=== PATIENT | female | born 1955 | race Caucasian/White ===

== ENCOUNTER 2016-04-25 11:40 | Emergency (ER) | payer OTHER ==
[~2016-04-25] VITALS: Ht 162.6 cm; Wt 60.0 kg
[~2016-04-25 11:40] MED LIST: FIORTAB4 PO; PROM1SUP12 PR; Z.0.NO CURRENT MEDS
[2016-04-25 11:46] VITALS: BP 172/85; PULSE 74; RESP 22; TEMP 98; O2SAT 95
[2016-04-25 11:52] VITALS: BP 172/85; PULSE 74; RESP 22; O2SAT 95
[2016-04-25] MEDS ORDERED: BUTA1CAP PO (11:52)
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
[2016-04-25] MEDS ORDERED: IBUPROFEN 400 MG TAB PO ONE (12:00)
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
--- NOTE | 2016-04-25 12:42 | RADRPT ---
EXAM DATE/TIME: 04/25/2016 12:19 [facility] COMPARISON: No previous studies available for comparison. INDICATIONS : Left shoulder pain MEDICAL HISTORY : None. SURGICAL HISTORY : None. ENCOUNTER: Initial ACUITY: 1 day PAIN SCORE: 10/10 LOCATION: Left upper extremity FINDINGS: Two view examination of the left shoulder demonstrates no evidence of fracture or dislocation. The g lenohumeral and acromioclavicular joints are maintained. Bony mineralization is normal. CONCLUSION: Unremarkable study. Ambrosio Bruce MD on April 25, 2016 at 12:40 Board Certified Radiologist. This report was verified electronically.
[2016-04-25] MEDS ORDERED: IBUP400T20 PO (13:09)
[2016-04-25 13:21] VITALS: BP 152/82; PULSE 61; RESP 18; O2SAT 96
== END 2016-04-25 13:44 | disposition home or self-care (01) ==
LOC: NEPE 11:40
DX: M25.512 Pain in left shoulder (principal); R07.89 Other chest pain; V43.62XA Car passenger injured in collision with other type car in traffic accident, initial encounter; Y93.9 Activity, unspecified; Y92.9 Unspecified place or not applicable; Y99.9 Unspecified external cause status
CPT/HCPCS: 71020; 73030; 99284

== ENCOUNTER 2017-07-21 11:55 | Observation (INO) | payer BC ==
[~2017-07-21] VITALS: Ht 157.5 cm; Wt 62.0 kg
[~2017-07-21 11:55] MED LIST changes: +BUTA1CAP PO; -FIORTAB4 PO; +IBUP1TAB5 PO; -PROM1SUP12 PR; -Z.0.NO CURRENT MEDS
[2017-07-21 12:05] VITALS: BP 184/96; PULSE 73; RESP 20; TEMP 98.1; O2SAT 98
[2017-07-21 12:39] LABS: AUTOMATED NEUTROPHIL # 4.4 TH/MM3 (1.8-7.7); BASOPHIL # 0.1 TH/MM3 (0-0.2); BASOPHIL % 0.8 % (0.0-2.0); EOSINOPHIL # 0.1 TH/MM3 (0-0.4); EOSINOPHIL % 1.5 % (0.0-4.0); HEMATOCRIT 42.2 % (35.0-46.0); HEMOGLOBIN 14.2 GM/DL (11.6-15.3); LYMPH % 31.2 % (9.0-44.0); LYMPHOCYTE # 2.3 TH/MM3 (1.0-4.8); MEAN CELL VOLUME 85.6 FL (80.0-100.0); MEAN CORPUSCULAR HEMOGLOBIN 28.8 PG (27.0-34.0); MEAN CORPUSCULAR HGB CONC 33.7 % (32.0-36.0); MEAN PLATELET VOLUME 8.8 FL (7.0-11.0); MONO % 6.6 % (0.0-8.0); MONOCYTE # 0.5 TH/MM3 (0-0.9); NEUT % 59.9 % (16.0-70.0); PLATELET COUNT 306 TH/MM3 (150-450); RED BLOOD COUNT 4.93 MIL/MM3 (4.00-5.30); RED CELL DISTRIBUTION WIDTH 12.7 % (11.6-17.2); WHITE BLOOD COUNT 7.4 TH/MM3 (4.0-11.0)
[2017-07-21 13:02] LABS: BLOOD UREA NITROGEN 13 MG/DL (7-18); CREATININE 0.87 MG/DL (0.50-1.00); GLOMERULAR FILTRATION RATE 66 ML/MIN (>89)
[2017-07-21 13:03] LABS: CALCIUM 8.8 MG/DL (8.5-10.1); GLUCOSE,RANDOM 88 MG/DL (74-106); SODIUM (NA) 142 MEQ/L (136-145)
[2017-07-21 13:04] LABS: BICARBONATE 31.8 MEQ/L (21.0-32.0); CHLORIDE 106 MEQ/L (98-107); TROPONIN I LESS THAN 0.02 NG/ML (0.02-0.05)
--- NOTE | 2017-07-21 13:14 | RADRPT ---
EXAM DATE/TIME: 07/21/2017 12:26 [facility] COMPARISON: CHEST PA & LAT, April 25, 2016, 12:17. INDICATIONS : Midsternal chest pains. MEDICAL HISTORY : None. SURGICAL HISTORY : None. ENCOUNTER: Initial ACUITY: 2 days PAIN SCORE: 8/10 LOCATION: Left chest FINDINGS: PA and lateral views of the chest demonstrate the lungs to be symmetrically aerated without evidence of mass, infiltrate or effusion. The cardiomediastinal contours are unremarkable. Osseous structure s are intact. CONCLUSION: 1. No acute cardiopulmonary disease. Agustín Carvajal MD on July 21, 2017 at 13:11 Board Certified Radiologist. This report was verified electronically.
[2017-07-21 13:48] VITALS: BP 173/88; PULSE 65; RESP 15; TEMP 98; O2SAT 98
[2017-07-21] MEDS ORDERED: TEMAZEPAM 15 MG CAP PO PRN (14:00)
[2017-07-21] MEDS ORDERED: ONDANSETRON HCL 4 MG/2 ML VIAL IV PUSH PRN (14:00)
[2017-07-21] MEDS ORDERED: MORPHINE SULFATE 4 MG/ML INJ IV PUSH PRN (14:00)
[2017-07-21] MEDS ORDERED: NITROGLYCERIN 0.4 MG SL 25 TABS/BTL SL PRN (14:00)
[2017-07-21] MEDS ORDERED: ALPRAZolam 0.25 MG TAB PO PRN (14:00)
[2017-07-21] MEDS ORDERED: SODIUM CHLORIDE 0.9% FLUSH 10 ML FLUSH IV FLUSH PRN (14:00)
--- NOTE | 2017-07-21 14:07 | PD ---
HPI Chief Complaint: Chest Pain Time Seen by Provider: 13:57 Travel History International Travel<30 days: No Contact w/Intl Traveler<30days: No Traveled to known affect area: No History of Present Illness HPI 61-year-old female arrives with a complaint of chest pain. 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 Pain has persisted. It was much worse this morning and she saw her primary doctor, Dr. Kenney, who performed an EKG and advised her to come to the ER for evaluation. She reports chest pain is gone in the ER after she received nitro sublingual, and I am injection and aspirin Dr. Kenney's office. There is no exertional chest pain or shortness of breath. She has no cough or fever to report. She denies diabetes hypertension hyperlipidemia. There is no family history coronary artery disease. She does not smoke or drink. PFSH Past Medical History Medical History: Denies Significant Hx Cardiovascular Problems: Yes Diminished Hearing: No Headaches: Yes Tetanus Vaccination: > 5 Years Influenza Vaccination: No ?: Not Menopausal: Yes : 5 Para: 5 Past Surgical History Surgical History: No Previous Surgery Social History Alcohol Use: No Tobacco Use: No Substance Use: No Allergies-Medications (Allergen,Severity, Reaction): Coded Allergies: No Known Allergies (Verified Allergy, Unknown, 07/21/17) Reported Meds & Prescriptions Reported Meds & Active Scripts Active Review of Systems Except as stated in HPI: all other systems reviewed are Neg General / Constitutional: No: Fever Physical Exam Narrative GENERAL: 61-year-old female pleasant well-nourished well-developed no acute distress Vital Signs Date Time Temp Pulse Resp B/P (MAP) Pulse Ox O2 Delivery O2 Flow Rate FiO2 07/21/17 13:48 98 07/21/17 13:48 98.0 65 15 173/88 (116) 98 Room Air 07/21/17 13:48 64 15 98 Room Air 07/21/17 12:05 98.1 73 20 184/96 (125) 98 SKIN: Warm and dry. HEAD: Atraumatic. Normocephalic. EYES: Pupils equal and round. No scleral icterus. No injection or drainage. ENT: No nasal bleeding or discharge. Mucous membranes pink and moist. NECK: Trachea midline. No JVD. CARDIOVASCULAR: Regular rate and rhythm. RESPIRATORY: No accessory muscle use. Clear to auscultation. Breath sounds equal bilaterally. GASTROINTESTINAL: Abdomen soft, non-tender, nondistended. Hepatic and splenic margins not palpable. MUSCULOSKELETAL: Extremities without clubbing, cyanosis, or edema. No obvious deformities. NEUROLOGICAL: Awake and alert. No obvious cranial nerve deficits. Motor grossly within normal limits. Five out of 5 muscle strength in the arms and legs. Normal speech. PSYCHIATRIC: Appropriate mood and affect; insight and judgment normal. Data Data Last Documented VS Vital Signs Date Time Temp Pulse Resp B/P (MAP) Pulse Ox O2 Delivery O2 Flow Rate FiO2 07/21/17 13:48 98 07/21/17 13:48 98.0 65 15 173/88 (116) Room Air Orders Orders Electrocardiogram (07/21/17 12:08) Complete Blood Count With Diff (07/21/17 12:08) Basic Metabolic Panel (Bmp) (07/21/17 12:08) Ckmb (Isoenzyme) Profile (07/21/17 12:08) Troponin I (07/21/17 12:08) Iv Access Insert/Monitor (07/21/17 12:08) Ecg Monitoring (07/21/17 12:08) Oxygen Administration (07/21/17 12:08) Oximetry (07/21/17 12:08) Chest, Pa & Lat (07/21/17 12:08) Activity Bed Rest With Brp (07/21/17 14:00) Vital Signs (Adult) Q4H (07/21/17 14:00) Cardiac Rhythm .As Directed (07/21/17:) Notify Dr: Other .PRN (07/21/17 14:00) Notify Dr. Parameters (07/21/17 14:) Resp Oxygen Nasal Cannula (07/21/17 ) Ckmb (Isoenzyme) Profile (07/21/17 14:00) Ckmb (Isoenzyme) Profile (07/21/17 17:00) Troponin I (07/21/17 14:00) Troponin I (07/21/17 17:00) Electrocardiogram (07/21/17 14:00) Electrocardiogram (07/21/17 17:00) ^ Obtain (07/21/17 14:00) Sodium Chloride 0.9% Flush (Ns Flush) (07/21/17 14:00) Sodium Chloride 0.9% Flush (Ns Flush) (07/21/17 21:00) Acetamin-Hydrocod 325-7.5 Mg (Helper 7.5 (07/21/17 14:00) Morphine Inj (Morphine Inj) (07/21/17 14:00) Ondansetron Inj (Zofran Inj) (07/21/17 14:00) Nitroglycerin Sl (Nitrostat Sl) (07/21/17 14:00) Aspirin (Aspirin) (07/22/17 09:00) Temazepam (Restoril) (07/21/17 14:00) Alprazolam (Xanax) (07/21/17 14:00) Sewer And Inspector / Telemetry CLAUDE.Q8H (07/21/17 14:00) Admit Order (Ed Use Only) (07/21/17 14:00) Labs Laboratory Tests Test 07/21/17 12:20 White Blood Count 7.4 TH/MM3 Red Blood Count 4.93 MIL/MM3 Hemoglobin 14.2 GM/DL Hematocrit 42.2 % Mean Corpuscular Volume 85.6 FL Mean Corpuscular Hemoglobin 28.8 PG Mean Corpuscular Hemoglobin Concent 33.7 % Red Cell Distribution Width 12.7 % Platelet Count 306 TH/MM3 Mean Platelet Volume 8.8 FL Neutrophils (%) (Auto) 59.9 % Lymphocytes (%) (Auto) 31.2 % Monocytes (%) (Auto) 6.6 % Eosinophils (%) (Auto) 1.5 % Basophils (%) (Auto) 0.8 % Neutrophils # (Auto) 4.4 TH/MM3 Lymphocytes # (Auto) 2.3 TH/MM3 Monocytes # (Auto) 0.5 TH/MM3 Eosinophils # (Auto) 0.1 TH/MM3 Basophils # (Auto) 0.1 TH/MM3 CBC Comment DIFF FINAL Differential Comment Blood Urea Nitrogen 13 MG/DL Creatinine 0.87 MG/DL Random Glucose 88 MG/DL Calcium Level 8.8 MG/DL Sodium Level 142 MEQ/L Potassium Level 4.4 MEQ/L Chloride Level 106 MEQ/L Carbon Dioxide Level 31.8 MEQ/L Anion Gap 4 MEQ/L Estimat Glomerular Filtration Rate 66 ML/MIN Total Creatine Kinase 74 U/L Troponin I LESS THAN 0.02 NG/ML [facility] Medical Decision Making Medical Screen Exam Complete: Yes Emergency Medical Condition: Yes Medical Record Reviewed: Yes Differential Diagnosis NSTEMI, unstable angina, coronary vasospasm, PE, PTX, aortic dissection, pericarditis, myocarditis, endocarditis, PNA, esophageal disease, aneurysm, musculoskeletal etiologies, anxiety, cocaine/sympathomimetic abuse Narrative Course CBC & BMP Diagram 07/21/17 12:20 Calcium Level 8.8 Troponin is undetectable The chest x-ray is unremarkable EKG shows left bundle-branch block with a rate of 56 Last Impressions Chest X-Ray 07/21/17 1208 Signed Impressions: Service Date/Time: July 12:26 - CONCLUSION: 1. No acute cardiopulmonary disease. Agustín Carvajal MD There appears to be a new left bundle branch block based on EKG however the most recent prior EKG is 9 years ago the patient has no chest pain in the ER. Chest pain center evaluation in this scenario is considered most appropriate. Diagnosis Primary Impression: Chest pain Qualified Codes: R07.9 - Chest pain, unspecified Admitting Information Admitting Physician Requests: Observation Joce Grubbs MD July 21, 2017 14:07
[2017-07-21 14:40] VITALS: BP 143/77; TEMP 97.8
[2017-07-21] MEDS ORDERED: cloNIDine HCL 0.1 MG TAB PO PRN (15:00)
[2017-07-21] MEDS ORDERED: RESP: ALBUTEROL 2.5 MG/IPRATROPIUM 0.5 MG NEB (PRN) INH (15:00)
[2017-07-21 15:45] VITALS: BP 149/72; PULSE 54; RESP 18; TEMP 98.1; O2SAT 97
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
[2017-07-21 17:08] LABS: TROPONIN I LESS THAN 0.02 NG/ML (0.02-0.05)
[2017-07-21 19:57] VITALS: BP 154/73; PULSE 81; RESP 16; TEMP 98; O2SAT 97
[2017-07-21 20:30] LABS: TROPONIN I LESS THAN 0.02 NG/ML (0.02-0.05)
[2017-07-21] MEDS: SODIUM CHLORIDE 0.9% FLUSH 10 ML FLUSH IV FLUSH SCH (20:47)
[2017-07-21] MEDS: ACETAMINOPHEN/HYDROcodone 325 MG/7.5 MG TAB PO PRN (22:48)
[2017-07-21 23:09] VITALS: BP 153/67; PULSE 65; RESP 16; TEMP 98; O2SAT 96
[2017-07-22] VITALS (7 sets, daily range): BP systolic 122–145; BP diastolic 60–75; PULSE 50–60; RESP 16–18; TEMP 97.4–98; O2SAT 67–98
[2017-07-22] MEDS: ACETAMINOPHEN/HYDROcodone 325 MG/7.5 MG TAB PO PRN (08:32)
[2017-07-22] MEDS: SODIUM CHLORIDE 0.9% FLUSH 10 ML FLUSH IV FLUSH SCH (08:34)
[2017-07-22] MEDS ORDERED: ASPIRIN 325 MG TAB PO SCH (09:00)
[2017-07-22] MEDS ORDERED: REGADENOSON INJ 0.4 MG/5 ML SYR ONE (09:35)
[2017-07-22] MEDS ORDERED: CITRATED CAFFEINE (IV) 60 MG/3 ML VIAL ONE (09:47)
--- NOTE | 2017-07-22 11:07 | RADRPT ---
EXAM DATE/TIME: 07/22/2017 09:06 [facility] COMPARISON: No previous studies available for comparison. INDICATIONS : Chest pain. Angina. Abnormal EKG. DOSE: 27.2 mCi Tc99m Myoview at stress. 8.4 mCi Tc99m Myoview at rest. 0.4 mg Lexiscan STRESS SYMPTOMS: Nausea, and chest pain. EJECTION FRACTION: 35% MEDICAL HISTORY : None SURGICAL HISTORY : None. ENCOUNTER: Initial ACUITY: 1 day PAIN SCALE: 7/10 LOCATION: chest TECHNIQUE: The patient underwent pharmacologic stress with infusion of prescribed dose. Continuous ECG tracing was monitored during stress. Gated SPECT imaging was performed after stress and conventional SPECT i maging was performed at rest. The examination was performed on a SPECT/CT scanner, both attenuation and non-corrected datasets were reviewed. FINDINGS: DISTRIBUTION: The maximum perfused segment at stress is in the lateral wall. PERFUSION STUDY: There is mildly diminished apical perfusion without evidence of redistribution. GATED STUDY: Mild left ventricular chamber dilatation and global moderate hypokinesis CONCLUSION: Mild severity moderate size fixed apical perfusion abnormality. Moderate LV dysfunction. RISK CATEGORY: Intermediate (1-3% Annual Mortality Rate) Edwin Archuleta MD on July 22, 2017 at 10:50 Board Certified Radiologist. This report was verified electronically.
[2017-07-22] MEDS ORDERED: LISI-519 PO (11:54)
--- NOTE | 2017-07-22 11:59 | HHI.DCPOC ---
Discharge Care Plan Diagnosis: (1) Atypical chest pain (2) Decreased cardiac ejection fraction Goals to Promote Your Health * To prevent worsening of your condition and complications * To maintain your health at the optimal level Directions to Meet Your Goals Take your medications as prescribed Follow your dietary instruction Follow activity as directed Keep your appointments as scheduled Take your immunizations and boosters as scheduled If your symptoms worsen call your PCP, if no PCP go to Urgent Care Center or Emergency Room Smoking is Dangerous to Your Health. Avoid second hand smoke Call the 24-hour hour crisis hotline for domestic abuse at T[facility] Martins July 22, 2017 11:59
--- NOTE | 2017-07-22 14:08 | TR ---
Date Performed: 07/22/2017 Time Performed: 09:34:24 DOCTOR: Heber Decker DRUG LIST: CLINICAL HISTORY: REASON FOR TEST: REASON FOR ENDING: OBSERVATION: CONCLUSION: COMMENTS: Lexiscan stress test was performed under standard four minute protocol. Radionuclide was injected one minute prior to ending the test. No electrocardiographic abormalities were present t o suggest ischemia. Nuclear imaging and interpretation are pending.
--- NOTE | 2017-07-23 08:38 | EKG ---
Date Performed: 07/21/2017 Time Performed: 18:24:21 PTAGE: 61 years EKG: SINUS BRADYCARDIA LEFT BUNDLE BRANCH BLOCK ABNORMAL ECG PREVIOUS TRACING : 07/21/2017 16.05 DOCTOR: Ignacia English Interpretating Date/Time 07/23/2017 08:35:14
--- NOTE | 2017-07-23 08:41 | EKG ---
Date Performed: 07/21/2017 Time Performed: 16:05:06 PTAGE: 61 years EKG: SINUS BRADYCARDIA LEFT BUNDLE BRANCH BLOCK ABNORMAL ECG PREVIOUS TRACING : 07/21/2017 12.15 DOCTOR: Ignacia English Interpretating Date/Time 07/23/2017 08:39:01
--- NOTE | 2017-07-23 08:49 | EKG ---
Date Performed: 07/21/2017 Time Performed: 12:15:41 PTAGE: 61 years EKG: SINUS BRADYCARDIA LEFT BUNDLE BRANCH BLOCK ABNORMAL ECG PREVIOUS TRACING : 12/07/2008 18.37 DOCTOR: Ignacia English Interpretating Date/Time 07/23/2017 08:44:43
== END 2017-07-22 14:00 | disposition home or self-care (01) ==
LOC: NEPE 11:55 → NEDA 14:02 → NEPFCDU 15:38
DX: R07.89 Other chest pain (principal); R51 Headache; I44.7 Left bundle-branch block, unspecified; I20.9 Angina pectoris, unspecified
CPT/HCPCS: 71046; 78452; 80048; 82550; 84484; 85025; 93005; 93017; 96374; 99285; A9502; G0378; J0706; J2405; J2785